=== PATIENT | male | born 1940 | race Caucasian/White ===

== ENCOUNTER 2017-02-01 10:12 | Emergency (ER) | payer MEDICARE ==
[~2017-02-01] VITALS: Ht 182.9 cm; Wt 94.0 kg
[~2017-02-01 10:12] MED LIST: ASPI81TA82 PO; COUM5TAB PO; GLIP1TAB18 PO; HYDR-3533 PO; LANO0.2510 PO; LISI2.5T3 PO; NITR0.4S SL; ROSU40 PO; TOPR100T15 PO
[2017-02-01 10:15] VITALS: BP 130/72; PULSE 88; RESP 16; TEMP 98.1; O2SAT 97
--- NOTE | 2017-02-01 10:48 | PD ---
HPI . Fall Chief Complaint: Injury Time Seen by Provider: 10:15 Travel History International Travel<30 days: No Contact w/Intl Traveler<30days: No Traveled to known affect area: No History of Present Illness HPI 77-year-old male patient presents the emergency department via EMS after reporting a fall yesterday morning. Patient states he got out of the shower and slipped. Patient reports pain in his left hip and medial aspect of his femur. Patient has been ambulatory since this fall but states it hurts to walk. Patient did not lose consciousness but he reports that he did hit his head and has been feeling dizzy subsequent. Patient has a history of brain aneurysm and has coils in place. Patient is on Coumadin. Patient reports that he had blood work done 2 days ago and was within therapeutic limits although he does not remember his INR. Patient denies any neck or back pain. Patient has full range of motion of neck. PFSH Past Medical History Hx Anticoagulant Therapy: Yes AAA: Yes Arthritis: Yes (BILATERAL KNEES ) Asthma: No Atrial Fibrillation: Yes Blood Disorders: No Heart Rhythm Problems: Yes Cancer: No Cardiac Catheterization: Yes (DENIES STENTING) Cardiovascular Problems: Yes High Cholesterol: No Chemotherapy: No Chest Pain: No Congestive Heart Failure: No COPD: Yes Cerebrovascular Accident: No Coronary Artery Disease: Yes Diabetes: Yes Diminished Hearing: No Endocrine: No Gastrointestinal Disorders: No Glaucoma: No Genitourinary: No Headaches: No Hepatitis: No Hiatal Hernia: No Hypertension: Yes Immune Disorder: No Musculoskeletal: Yes Neurologic: Yes Psychiatric: No Reproductive: No Respiratory: Yes (asbestos) Integumentary: No Immunizations Current: Yes Migraines: No Myocardial Infarction: Yes Radiation Therapy: No Seizures: No Sleep Apnea: No Thyroid Disease: No Past Surgical History Abdominal Aneurysm Repair: Yes (2007) Abdominal Surgery: No AICD: No Appendectomy: Yes Arteriovenous Shunt: No Cardiac Surgery: Yes (CABG ) Cholecystectomy: Yes Coronary Artery Bypass Graft: Yes (2005) Ear Surgery: No Endocrine Surgery: No Eye Surgery: No Genitourinary Surgery: No Gynecologic Surgery: No Insulin Pump: No Joint Replacement: No Neurologic Surgery: Yes (cerebral anerysum) Oral Surgery: No Pacemaker: No Thoracic Surgery: No Other Surgery: Yes (cabg x3, brain sx, AAA repair) Social History Alcohol Use: No Tobacco Use: No (quit) Substance Use: No Allergies-Medications (Allergen,Severity, Reaction): Uncoded Allergies: MRI PRECAUTION/ANEURSYM CLIPS (Allergy, Severe, ANEURYSM CLIPS IN BRAIN., 01/31/15) MRI PRECAUTION/ ANEURYSM CLIPS IN BRAIN 01/02/15 VV Reported Meds & Prescriptions Reported Meds & Active Scripts Active Reported Fenofibrate 48 Mg Tab 48 Mg PO DAILY Digoxin 0.25 Mg Tab 0.25 Mg PO DAILY Warfarin 7.5 Mg Tab 7.5 Mg PO DAILY Rosuvastatin (Rosuvastatin Calcium) 40 Mg Tab 40 Mg PO DAILY Aldactone (Spironolactone) 25 Mg Tab 25 Mg PO DAILY Lisinopril 2.5 Mg Tab 2.5 Mg PO DAILY Metoprolol Tartrate 100 Mg Tab 100 Mg PO DAILY Glipizide 5 Mg Tab 5 Mg PO DAILY Take 30 minutes before a meal Review of Systems Except as stated in HPI: all other systems reviewed are Neg Physical Exam Narrative GENERAL: Well-nourished, well-developed 77-year-old male patient in no acute distress. Nontoxic appearing. SKIN: Focused skin assessment warm/dry. No areas of erythema, ecchymosis or cyanosis. HEAD: Normocephalic. Atraumatic. Old scar noted to the left aspect of scalp. NEUROLOGICAL: Awake and alert. Cranial nerves II through XII intact. Motor and sensory grossly within normal limits. Five out of 5 muscle strength in all muscle groups. Normal speech. EYES: Demonstrate PERRLA bilaterally. No scleral icterus. No injection or drainage. NECK: Supple, trachea midline. No JVD or lymphadenopathy. CARDIOVASCULAR: Regular rate and rhythm without murmurs, gallops, or rubs. RESPIRATORY: Breath sounds equal bilaterally. No accessory muscle use. GASTROINTESTINAL: Abdomen soft, non-tender, nondistended. MUSCULOSKELETAL: Left hip pain with palpation. Left medial thigh pain with palpation. No obvious deformity, ecchymosis, erythema, cyanosis, or edema. BACK: No midline tenderness, no obvious deformity, ecchymosis, erythema or cyanosis. No CVA tenderness. Data Data Last Documented VS Vital Signs Date Time Temp Pulse Resp B/P (MAP) Pulse Ox O2 Delivery O2 Flow Rate FiO2 02/01/17 12:57 86 18 133/71 (91) 97 02/01/17 11:22 Room Air 02/01/17 10:15 98.1 Orders Orders Femur (Ap & Lat/2vws) (02/01/17 10:35) Hip, Uni(Ap&Lat) W Ap Pelvis (02/01/17 10:35) Ice/Cold Pack (02/01/17 10:35) Ct Brain W/O Iv Contrast(Rout) (02/01/17 10:35) Ed Discharge Order (02/01/17 12:44) MDM Medical Decision Making Medical Screen Exam Complete: Yes Emergency Medical Condition: Yes Differential Diagnosis Differential diagnoses include but not limited to left hip fracture, left femur fracture, ICH, concussive syndrome, fall Narrative Course 77-year-old male patient presents emergency department for evaluation of left hip and left medial femur pain after falling yesterday morning when he slipped getting out of the shower. Patient has an extensive medical history. He has coils in his brain from a brain aneurysm. He is on Coumadin for atrial fibrillation. He is unsure of his current INR but he had checked 2 days ago and reports that it was in therapeutic limits. Patient states he hit his head when he fell but he did not lose consciousness. Patient has no focal neurological deficits. He does report that he gets dizzy when standing for long period of time after the fall though. X-ray of the left hip, left femur and CAT scan of brain ordered and pending. X-ray of the left hip, left femur and CAT scan of brain showed no acute abnormalities. Patient was relieved when given the results and thanked us for care. Patient will be discharged home with instructions to follow-up with his primary care and to take Tylenol as needed for pain. Last Impressions Hip and Pelvis X-Ray 02/01/17 1035 Signed Impressions: Service Date/Time: Wednesday, February 01, 2017 11:30 - CONCLUSION: Negative trauma study. Jaguar Lowe MD Head CT 02/01/17 1035 Signed Impressions: Service Date/Time: Wednesday, February 01, 2017 10:52 - CONCLUSION: 1. Encephalomalacia involving the left temporal lobe. 2. 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 3. No acute infarct, acute hemorrhage, midline shift or extraaxial fluid collections. Trav Pedro MD Femur X-Ray 02/01/17 1035 Signed Impressions: Service Date/Time: Wednesday, February 01, 2017 11:30 - CONCLUSION: Negative trauma study. Jaguar Lowe MD Diagnosis Primary Impression: Fall Qualified Codes: W19.XXXA - Unspecified fall, initial encounter Additional Impression: Contusion Qualified Codes: S70.02XA - Contusion of left hip, initial encounter Referrals: Primary Care Physician Patient Instructions: Contusion in Adults (DC), Fall Prevention for Children ( GEN), General Instructions Additional Instructions: Please return to emergency department if your symptoms return or worsen. Follow up with your primary care provider. Take Tylenol as needed for pain. May apply ice packs for pain relief Disposition: 01 DISCHARGE HOME Condition: Stable Maggie Howell Feb 01, 2017 10:48
[2017-02-01] MEDS ORDERED: SPIR25 PO ×2 (10:53)
[2017-02-01] MEDS ORDERED: ROSU1TAB10 PO ×2 (10:53)
[2017-02-01] MEDS ORDERED: DIGO0.25 PO ×2 (10:53)
[2017-02-01] MEDS ORDERED: LISI2.5T3 PO ×2 (10:53)
[2017-02-01] MEDS ORDERED: WARF-21 PO ×2 (10:53)
[2017-02-01] MEDS ORDERED: FENO48TA PO ×2 (10:53)
[2017-02-01] MEDS ORDERED: METO100T PO (10:53)
[2017-02-01] MEDS ORDERED: GLIP5TAB8 PO ×2 (10:53)
[2017-02-01 11:22] VITALS: BP 127/68; PULSE 88; RESP 18; O2SAT 100
--- NOTE | 2017-02-01 11:23 | RADRPT ---
EXAM DATE/TIME: 02/01/2017 10:52 [facility] COMPARISON: No previous studies available for comparison. INDICATIONS : Trauma. Fell and hit head yesterday. Dizziness. RADIATION DOSE: 64.21 CTDIvol (mGy) MEDICAL HISTORY : Aneurysm, intracranial. Aneurysm, abdominal. Chronic obstructive pulmonary disease .Hypertension. My ocardial infarction. Diabetes. SURGICAL HISTORY : Intracranial aneurysm repair. Abdominal aortic aneurysm repair. Appendectomy. Cholecystectomy. CABG. ENCOUNTER: Initial ACUITY: 1 day PAIN SCALE: 2/10 LOCATION: cranial TECHNIQUE: Multiple contiguous axial images were obtained of the head. Using automated exposure control and adj ustment of the mA and/or kV according to patient size, radiation dose was kept as low as reasonably a chievable to obtain optimal diagnostic quality images. DICOM format image data is available electro nically for review and comparison. FINDINGS: There is an aneurysm clip in the expected region of the left middle cerebral artery. Encephalomalaci a is noted involving the left temporal lobe. Old infarcts are also noted involving left basal ganglia. There i s ex vacuo dilatation of the left lateral ventricle. There is no acute infarct, acute hemorrhage, midline shift or extraaxial fluid collections. Mild cerebral atrophy is noted. CONCLUSION: 1. Encephalomalacia involving the left temporal lobe. 2. 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 3. No acute infarct, acute hemorrhage, midline shift or extraaxial fluid collections. Trav Pedro MD on February 01, 2017 at 11:07 Board Certified Radiologist. This report was verified electronically.
--- NOTE | 2017-02-01 12:05 | RADRPT ---
EXAM DATE/TIME: 02/01/2017 11:30 [facility] COMPARISON: No previous studies available for comparison. INDICATIONS : Fall, left posterior hip and mid thigh pain. MEDICAL HISTORY : None. SURGICAL HISTORY : None. ENCOUNTER: Initial ACUITY: 2 days PAIN SCORE: 5/10 LOCATION: Left posterior hip FINDINGS: Examination of the left hip was performed with AP Pelvis. The primary and secondary trabecular patte rn of the femoral neck is intact. The hip joint is of normal width without significant sclerosis or bony hypertrophy. The acetabulum is grossly intact. Vascular calcifications are present. Arterial st ent grafts are noted in place in the iliac arteries. CONCLUSION: Negative trauma study. Jaguar Lowe MD on February 01, 2017 at 12:04 Board Certified Radiologist. This report was verified electronically.
--- NOTE | 2017-02-01 12:06 | RADRPT ---
EXAM DATE/TIME: 02/01/2017 11:30 [facility] COMPARISON: No previous studies available for comparison. INDICATIONS : Fall, left posterior hip and mid thigh pain. MEDICAL HISTORY : None. SURGICAL HISTORY : None. ENCOUNTER: Initial ACUITY: 2 days PAIN SCORE: 5/10 LOCATION: Left posterior hip and mid thigh FINDINGS: Two view examination of the left femur demonstrates no evidence of fracture or dislocation. Bony min eralization is normal. The soft tissue structures are intact. Degenerative changes are noted in the medial compartment of the knee. There are vascular calcifications. CONCLUSION: Negative trauma study. Jaguar Lowe MD on February 01, 2017 at 12:05 Board Certified Radiologist. This report was verified electronically.
[2017-02-01 12:57] VITALS: BP 133/71
== END 2017-02-01 12:59 | disposition home or self-care (01) ==
LOC: PHED 10:12
DX: S70.02XA Contusion of left hip, initial encounter (principal); S09.90XA Unspecified injury of head, initial encounter; E11.9 Type 2 diabetes mellitus without complications; I10 Essential (primary) hypertension; I48.91 Unspecified atrial fibrillation; I25.10 Atherosclerotic heart disease of native coronary artery without angina pectoris; W01.0XXA Fall on same level from slipping, tripping and stumbling without subsequent striking against object, initial encounter; Y93.89 Activity, other specified; Z79.01 Long term (current) use of anticoagulants; Z79.84 Long term (current) use of oral hypoglycemic drugs; Z87.891 Personal history of nicotine dependence; Z95.1 Presence of aortocoronary bypass graft
CPT/HCPCS: 70450; 73502; 73552

== ENCOUNTER 2017-02-08 10:40 | Inpatient (IN) | payer MEDICARE ==
[2017-02-08] VITALS (9 sets, daily range): BP systolic 100–144; BP diastolic 59–98; PULSE 83–114; RESP 12–16; TEMP 96.5–98.3; O2SAT 95–98
[~2017-02-08] VITALS: Ht 182.9 cm; Wt 98.4 kg
[~2017-02-08 10:40] MED LIST changes: +DIGO0.25 PO; +FENO48TA PO; +GLIP5TAB8 PO; +METO100T PO; +ROSU1TAB10 PO; +SPIR25 PO; +WARF-21 PO
--- NOTE | 2017-02-08 11:53 | PD ---
HPI Chief Complaint: Fall Time Seen by Provider: 11:48 Travel History International Travel<30 days: No Contact w/Intl Traveler<30days: No Traveled to known affect area: No History of Present Illness HPI 77-year-old male patient presents to the ER today, had been seen a week ago after a fall, had x-rays done of the femur and CAT scan of the head at that time which were all negative, is back here sent in by Dr. Johnson because he apparently has been having increased swelling of the left leg and is having difficulty walking because of pain in the left leg. He apparently is having difficulty being care for by family. He denies any new issues or injuries. He has apparently been sent by office because of evaluation for DVT. Modifying Factors: None Associated Signs & Symptoms: Fall 1 week ago, left leg swelling and pain, difficulty walking Risk Factors: On Coumadin PFSH Past Medical History Hx Anticoagulant Therapy: Yes AAA: Yes Arthritis: Yes (BILATERAL KNEES ) Asthma: No Atrial Fibrillation: Yes Blood Disorders: No Heart Rhythm Problems: Yes Cancer: No Cardiac Catheterization: Yes (DENIES STENTING) Cardiovascular Problems: Yes High Cholesterol: No Chemotherapy: No Chest Pain: No Congestive Heart Failure: No COPD: Yes Cerebrovascular Accident: No Coronary Artery Disease: Yes Diabetes: Yes Diminished Hearing: No Endocrine: No Gastrointestinal Disorders: No Glaucoma: No Genitourinary: No Headaches: No Hepatitis: No Hiatal Hernia: No Hypertension: Yes Immune Disorder: No Musculoskeletal: Yes Neurologic: Yes Psychiatric: No Reproductive: No Respiratory: Yes (asbestos) Integumentary: No Immunizations Current: Yes Migraines: No Myocardial Infarction: Yes Radiation Therapy: No Seizures: No Sleep Apnea: No Thyroid Disease: No Past Surgical History Abdominal Aneurysm Repair: Yes (2007) Abdominal Surgery: No AICD: No Appendectomy: Yes Arteriovenous Shunt: No Cardiac Surgery: Yes (CABG ) Cholecystectomy: Yes Coronary Artery Bypass Graft: Yes (2005) Ear Surgery: No Endocrine Surgery: No Eye Surgery: No Genitourinary Surgery: No Gynecologic Surgery: No Insulin Pump: No Joint Replacement: No Neurologic Surgery: Yes (cerebral anerysum) Oral Surgery: No Pacemaker: No Thoracic Surgery: No Other Surgery: Yes (cabg x3, brain sx, AAA repair) Social History Alcohol Use: No Tobacco Use: No (quit) Substance Use: No Allergies-Medications (Allergen,Severity, Reaction): Uncoded Allergies: MRI PRECAUTION/ANEURSYM CLIPS (Allergy, Severe, ANEURYSM CLIPS IN BRAIN., 02/08/17) MRI PRECAUTION/ ANEURYSM CLIPS IN BRAIN 01/02/15 VV. Reported Meds & Prescriptions Reported Meds & Active Scripts Active Reported Fenofibrate 48 Mg Tab 48 Mg PO DAILY Digoxin 0.25 Mg Tab 0.25 Mg PO DAILY Warfarin 7.5 Mg Tab 7.5 Mg PO DAILY Rosuvastatin (Rosuvastatin Calcium) 40 Mg Tab 40 Mg PO DAILY Aldactone (Spironolactone) 25 Mg Tab 25 Mg PO DAILY Lisinopril 2.5 Mg Tab 2.5 Mg PO DAILY Metoprolol Tartrate 100 Mg Tab 100 Mg PO DAILY Glipizide 5 Mg Tab 5 Mg PO DAILY Take 30 minutes before a meal Review of Systems Except as stated in HPI: all other systems reviewed are Neg Physical Exam Narrative GENERAL: Well-developed elderly white male patient currently in mild distress. Awake and oriented 3. SKIN: Focused skin assessment warm/dry. HEAD: Atraumatic. Normocephalic. EYES: Pupils equal and round. No scleral icterus. No injection or drainage. ENT: No nasal bleeding or discharge. Mucous membranes pink and moist. NECK: Trachea midline. No JVD. CARDIOVASCULAR: Regular rate and rhythm. No murmur appreciated. RESPIRATORY: No accessory muscle use. Clear to auscultation. Breath sounds equal bilaterally. GASTROINTESTINAL: Abdomen soft, non-tender, nondistended. Hepatic and splenic margins not palpable. MUSCULOSKELETAL: No obvious deformities. No clubbing. No cyanosis. There is significant pitting edema of the left leg going from the thigh all way down the leg, with notable ecchymosis posteriorly from the left buttocks all the way down the posterior part of the thigh to the calf area. Tender to palpation of the mid thigh area especially. Neurovascularly intact. NEUROLOGICAL: Awake and alert. No obvious cranial nerve deficits. Motor grossly within normal limits. Normal speech. PSYCHIATRIC: Appropriate mood and affect; insight and judgment normal. Data Data Last Documented VS Vital Signs Date Time Temp Pulse Resp B/P (MAP) Pulse Ox O2 Delivery O2 Flow Rate FiO2 02/08/17 14:43 83 16 110/64 (79) 98 Room Air 02/08/17 10:49 97.9 Orders Orders Complete Blood Count With Diff (02/08/17 11:48) Comprehensive Metabolic Panel (02/08/17 11:48) Prothrombin Time / Inr (Pt) (02/08/17 11:48) Act Partial Throm Time (Ptt) (02/08/17 11:48) Us Leg Venous Doppler (02/08/17 11:48) Ct Femur W/O Iv Contrast (02/08/17 ) Insulin Human Regular Inj (Novolin R Inj (02/08/17 14:15) Admit To Inpatient (02/08/17 ) Vital Signs (Adult) BRODIE.Q4H (02/08/17 14:41) Activity Bed Rest (02/08/17 14:41) Tractor Trailer Mechanic / Telemetry BRODIE.Q8H (02/08/17 14:41) Inpatient Certification (02/08/17 ) Admit Order (Ed Use Only) (02/08/17 14:40) Labs Laboratory Tests Test 02/08/17 12:15 White Blood Count 15.7 TH/MM3 Red Blood Count 3.52 MIL/MM3 Hemoglobin 10.1 GM/DL Hematocrit 30.7 % Mean Corpuscular Volume 87.1 FL Mean Corpuscular Hemoglobin 28.6 PG Mean Corpuscular Hemoglobin Concent 32.9 % Red Cell Distribution Width 16.2 % Platelet Count 308 TH/MM3 Mean Platelet Volume 7.4 FL Neutrophils (%) (Auto) 84.7 % Lymphocytes (%) (Auto) 5.2 % Monocytes (%) (Auto) 8.1 % Eosinophils (%) (Auto) 0.4 % Basophils (%) (Auto) 1.6 % Neutrophils # (Auto) 13.2 TH/MM3 Lymphocytes # (Auto) 0.8 TH/MM3 Monocytes # (Auto) 1.3 TH/MM3 Eosinophils # (Auto) 0.1 TH/MM3 Basophils # (Auto) 0.3 TH/MM3 CBC Comment DIFF FINAL Differential Comment Prothrombin Time 29.5 SEC Prothromb Time International Ratio 2.6 RATIO Activated Partial Thromboplast Time 37.8 SEC Blood Urea Nitrogen 21 MG/DL Creatinine 1.50 MG/DL Random Glucose 348 MG/DL Total Protein 7.0 GM/DL Albumin 3.2 GM/DL Calcium Level 8.2 MG/DL Alkaline Phosphatase 58 U/L Aspartate Amino Transf (AST/SGOT) 15 U/L Alanine Aminotransferase (ALT/SGPT) 20 U/L Total Bilirubin 2.2 MG/DL Sodium Level 128 MEQ/L Potassium Level 5.0 MEQ/L Chloride Level 95 MEQ/L Carbon Dioxide Level 25.6 MEQ/L Anion Gap 7 MEQ/L Estimat Glomerular Filtration Rate 45 ML/MIN [facility] Medical Decision Making Medical Screen Exam Complete: Yes Emergency Medical Condition: Yes Medical Record Reviewed: Yes Interpretation(s) Laboratory Tests Test 02/08/17 12:15 White Blood Count 15.7 TH/MM3 (4.0-11.0) Red Blood Count 3.52 MIL/MM3 (4.50-5.90) Hemoglobin 10.1 GM/DL (13.0-17.0) Hematocrit 30.7 % (39.0-51.0) Neutrophils (%) (Auto) 84.7 % (16.0-70.0) Lymphocytes (%) (Auto) 5.2 % (9.0-44.0) Monocytes (%) (Auto) 8.1 % (0.0-8.0) Neutrophils # (Auto) 13.2 TH/MM3 (1.8-7.7) Lymphocytes # (Auto) 0.8 TH/MM3 (1.0-4.8) Monocytes # (Auto) 1.3 TH/MM3 (0-0.9) Basophils # (Auto) 0.3 TH/MM3 (0-0.2) Prothrombin Time 29.5 SEC (9.8-11.6) Activated Partial Thromboplast Time 37.8 SEC (24.3-30.1) Blood Urea Nitrogen 21 MG/DL (7-18) Creatinine 1.50 MG/DL (0.60-1.30) Random Glucose 348 MG/DL (74-106) Albumin 3.2 GM/DL (3.4-5.0) Calcium Level 8.2 MG/DL (8.5-10.1) Total Bilirubin 2.2 MG/DL (0.2-1.0) Sodium Level 128 MEQ/L (136-145) Chloride Level 95 MEQ/L (98-107) Estimat Glomerular Filtration Rate 45 ML/MIN (>89) Last 24 hours Impressions Lower Extremity Ultrasound 02/08/17 1148 Signed Impressions: Service Date/Time: Wednesday, February 08, 2017 12:21 - CONCLUSION: Normal examination. Twin Terry MD Differential Diagnosis Left leg swelling, pain, difficulty walking: Contusions versus DVT versus dependent edema versus occult fracture Narrative Course Ultrasound shows no signs of DVT. CT of the leg does show a large left thigh hematoma. No underlying fracture was identified. INR is therapeutic. At this point, lab work also shows significant hyperglycemia and hyponatremia. He has not been eating well at home and may be slightly dehydrated as well as a creatinine is mildly elevated from baseline. Case was discussed with Dr. Johnson who would send the patient and he states that he suspected the patient may need more care at home and may need PT evaluation for possible rehabilitation care. Patient's was equally old is unable to care for the patient. Case was then discussed with Dr. Kelly for admission as an observation and for evaluation for PT therapy. Diagnosis Primary Impression: Thigh hematoma Additional Impression: Ambulatory dysfunction Admitting Information Admitting Physician Requests: Admit Anju Rojas MD Feb 08, 2017 11:53
[2017-02-08 12:21] LABS: AUTOMATED NEUTROPHIL # 13.2 TH/MM3 (1.8-7.7); BASOPHIL # 0.3 TH/MM3 (0-0.2); BASOPHIL % 1.6 % (0.0-2.0); EOSINOPHIL # 0.1 TH/MM3 (0-0.4); EOSINOPHIL % 0.4 % (0.0-4.0); HEMATOCRIT 30.7 % (39.0-51.0); LYMPH % 5.2 % (9.0-44.0); LYMPHOCYTE # 0.8 TH/MM3 (1.0-4.8); MEAN CELL VOLUME 87.1 FL (80.0-100.0); MEAN CORPUSCULAR HEMOGLOBIN 28.6 PG (27.0-34.0); MEAN CORPUSCULAR HGB CONC 32.9 % (32.0-36.0); MONO % 8.1 % (0.0-8.0); NEUT % 84.7 % (16.0-70.0); PLATELET COUNT 308 TH/MM3 (150-450); RED BLOOD COUNT 3.52 MIL/MM3 (4.50-5.90); RED CELL DISTRIBUTION WIDTH 16.2 % (11.6-17.2); WHITE BLOOD COUNT 15.7 TH/MM3 (4.0-11.0)
[2017-02-08 12:28] LABS: CHLORIDE 95 MEQ/L (98-107); SODIUM (NA) 128 MEQ/L (136-145)
[2017-02-08 12:32] LABS: ANION GAP 7 MEQ/L (5-15); BICARBONATE 25.6 MEQ/L (21.0-32.0); BLOOD UREA NITROGEN 21 MG/DL (7-18)
[2017-02-08 12:34] LABS: APTT (PATIENT) 37.8 SEC (24.3-30.1); INTERNATIONAL NORMALIZED RATIO 2.6 RATIO; PROTHROMBIN TIME - PATIENT 29.5 SEC (9.8-11.6)
[2017-02-08 12:35] LABS: ALT (GPT) 20 U/L (12-78); AST (GOT) 15 U/L (15-37); GLOMERULAR FILTRATION RATE 45 ML/MIN (>89)
[2017-02-08 12:36] LABS: TOTAL BILIRUBIN ADULT 2.2 MG/DL (0.2-1.0)
[2017-02-08 12:38] LABS: ALKALINE PHOSPHATASE 58 U/L (45-117); HEMO FLAGS DIFF FINAL
--- NOTE | 2017-02-08 12:46 | RADRPT ---
EXAM DATE/TIME: 02/08/2017 12:18 [facility] COMPARISON: HIP LEFT (AP&LAT 2/3VWS) W AP PELVIS, February 01, 2017, 11:30. FEMUR LEFT (AP & LAT/2VWS), February 01, 2017, 11:30. INDICATIONS : Left leg pain, bruising and swelling, fell 1 week ago. RADIATION DOSE: 14.33 CTDIvol (mGy) MEDICAL HISTORY : Aneurysm, abdominal. Aneurysm, intracranial. Chronic obstructive pulmonary disease.Hypertension. My ocardial infarction. Diabetes. SURGICAL HISTORY : Abdominal aortic aneurysm repair. CABG Appendectomy.Cholecystectomy. ENCOUNTER: Initial ACUITY: 1 week PAIN SCALE: 9/10 LOCATION: Left leg TECHNIQUE: Volumetric scanning of the femur was performed. Using automated exposure control and adjustment of t he mA and/or kV according to patient size, radiation dose was kept as low as reasonably achievable to obtain optimal diagnostic quality images. DICOM format image data is available electronically for review and comparison. FINDINGS: Heterogeneous and lobulated mass and/or collection seen posterolaterally of the upper left thigh ther e is an intramuscular component that mostly involves the inferolateral portions of gluteus jeimy an d proximal to mid portions of vastus lateralis.. There are also inter-muscular and interfascial compo nents, deep to gluteus jeimy, in the superficial greater trochanteric bursa deep to tensor fascial mina and also in the fascial plane between tensor fascia mina and vastus lateralis. The abnormality m easures approximate 6.9 x 12.2 cm in greatest transaxial dimension and estimated 11.5 cm proximal to distal. There is lateral predominant subcutaneous edema of the left thigh but nothing organized or dr ainable here. The left hip, left knee and femur are intact. No perceptible muscle tear. There is moderate osteoarthritis of the left knee, medial compartment predominant. CONCLUSION: Relatively large intramuscular and intermuscular hematoma of the upper left thigh as above. No fractu re. Twin Leslie MD on February 08, 2017 at 12:37 Board Certified Radiologist. This report was verified electronically.
--- NOTE | 2017-02-08 13:55 | RADRPT ---
EXAM DATE/TIME: 02/08/2017 12:21 [facility] COMPARISON: No previous studies available for comparison. INDICATIONS : Left leg pain. MEDICAL HISTORY : Myocardial infarction. Aneurysm, abdominal. Hypertension. CAD. A-fib. COPD. Arthritis. Diabetes. A nticoagulant therapy, Coumadin. SURGICAL HISTORY : Abdominal aortic aneurysm repair. CABG Pacemaker. Cardiac cath. Appendectomy. Cholecystectomy. ENCOUNTER: Initial ACUITY: 1 week PAIN SCORE: 9/10 LOCATION: Left leg. TECHNIQUE: Venous ultrasound of the leg was performed from the inguinal ligament to the proximal calf. Real-noble e, color Doppler and spectral tracing, compression and augmentation techniques were used. FINDINGS: There is normal compressibility of the deep venous system from the inguinal region to the proximal ca lf. No echogenic clot is seen in the lumen of the common femoral, femoral, popliteal, and posterior tibial veins. There is a normal response of the venous system to proximal and distal augmentation an d respiration. CONCLUSION: Normal examination. Twin Terry MD on February 08, 2017 at 13:53 Board Certified Radiologist. This report was verified electronically.
[2017-02-08] MEDS ORDERED: INSULIN HUMAN REGULAR 1,000 UNITS/10 ML VIAL IV PUSH ONE (14:15)
--- NOTE | 2017-02-08 16:53 | HHI.HP ---
[facility] Billy Johnson MD Admission Diagnosis left thigh hematoma/left thigh hematoma/poor ambulation/hyperglycemi Diagnoses: Chief Complaint: Leg pain, unable to take care of myself Travel History International Travel<30 Days: No Contact w/Intl Traveler <30 Da: No Traveled to Known Affected Are: No History of Present Illness 77-year-old white male being admitted for hyponatremia and left-sided weakness. Patient was in his usual state of health until about 10 days ago when he had a mechanical fall landing on his left leg hip and lower back. He underwent imaging and emergency room which showed no fractures. Since then he's had to use a front wheeled walker and has had persistent left leg weakness with pain. Pain in his leg is worse with weightbearing. Patient has not tried taking any new medications except for hydrocodone which he had left over from a previous prescription which does control his pain. He went to his primary care doctor today who apparently referred him to the emergency room for further evaluation of his left leg swelling. In the emergency room the patient's Dopplers negative for DVT but a CT shows a substantial hematoma. Due to his symptoms, the patient says he is unable to perform basic activities of daily living including showering, getting dressed, etc. His and his son are both in the room and they say that they are unable to care for him as well due to their obligations and also due to the physical exertion and requires to help him. Review of Systems Except as stated in HPI: all other systems reviewed are Neg Past Family Social History Past Medical History AAA Arthritis Atrial fibrillation COPD, asbestosis Coronary artery disease Diabetes hypertension Past Surgical History Appendectomy, CABG, AAA repair, cerebral aneurysm Allergies: Uncoded Allergies: MRI PRECAUTION/ANEURSYM CLIPS (Allergy, Severe, ANEURYSM CLIPS IN BRAIN., 02/08/17) MRI PRECAUTION/ ANEURYSM CLIPS IN BRAIN 01/02/15 VV. Family History HTN Social History Lives with , stop smoking decades ago Physical Exam Vital Signs Vital Signs Date Time Temp Pulse Resp B/P (MAP) Pulse Ox O2 Delivery O2 Flow Rate FiO2 02/08/17 15:56 82 16 100/88 (92) 97 02/08/17 15:00 88 16 117/70 (86) 97 Room Air 02/08/17 14:43 83 16 110/64 (79) 98 Room Air 02/08/17 14:00 84 16 Room Air 02/08/17 12:10 86 16 105/63 (77) 02/08/17 11:52 111 16 97 Room Air 02/08/17 10:49 97.9 114 16 144/98 (113) 97 Physical Exam VS: Afebrile GENERAL: Well-nourished elderly white male Head: Has a divot over the left restorationist which pt states its chronic SKIN: Ecchymoses noted over left lateral thigh and hip and lower back EYES: No scleral icterus. No injection or drainage. ENT: No nasal bleeding or discharge. Mucous membranes pink and moist. CARDIOVASCULAR: Regular rate and rhythm. no murmurs RESPIRATORY: No accessory muscle use. Clear to auscultation. Breath sounds equal bilaterally. GASTROINTESTINAL: Abdomen soft, non-tender, nondistended. Hepatic and splenic margins not palpable. Extremities: No clubbing, cyanosis, or edema. No obvious deformities. MUSCULOSKELETAL: Extremities without clubbing, cyanosis, or edema. No obvious deformities. Grossly intact ROM with 5/5 strength in upper extremities proximally; 3/5 LE extremity strength of proximal left extremity, 5/5 on right, intact full range of motion on passive dorsiflexion and plantar flexion of bilateral feet with no pain elicited NEUROLOGICAL: Awake and alert. No obvious cranial nerve deficits. No facial droop nor slurred speech noted. PSYCHIATRIC: Appropriate mood and affect; insight and judgment normal. Laboratory Laboratory Tests Test 02/08/17 12:15 White Blood Count 15.7 Red Blood Count 3.52 Hemoglobin 10.1 Hematocrit 30.7 Mean Corpuscular Volume 87.1 Mean Corpuscular Hemoglobin 28.6 Mean Corpuscular Hemoglobin Concent 32.9 Red Cell Distribution Width 16.2 Platelet Count 308 Mean Platelet Volume 7.4 Neutrophils (%) (Auto) 84.7 Lymphocytes (%) (Auto) 5.2 Monocytes (%) (Auto) 8.1 Eosinophils (%) (Auto) 0.4 Basophils (%) (Auto) 1.6 Neutrophils # (Auto) 13.2 Lymphocytes # (Auto) 0.8 Monocytes # (Auto) 1.3 Eosinophils # (Auto) 0.1 Basophils # (Auto) 0.3 CBC Comment DIFF FINAL Differential Comment Prothrombin Time 29.5 Prothromb Time International Ratio 2.6 Activated Partial Thromboplast Time 37.8 Blood Urea Nitrogen 21 Creatinine 1.50 Random Glucose 348 Total Protein 7.0 Albumin 3.2 Calcium Level 8.2 Alkaline Phosphatase 58 Aspartate Amino Transf (AST/SGOT) 15 Alanine Aminotransferase (ALT/SGPT) 20 Total Bilirubin 2.2 Sodium Level 128 Potassium Level 5.0 Chloride Level 95 Carbon Dioxide Level 25.6 Anion Gap 7 Estimat Glomerular Filtration Rate 45 Result Diagram: 02/08/17 1215 02/08/17 1215 Caprini VTE Risk Assessment Caprini VTE Risk Assessment: Mod/High Risk (score >= 2) Caprini Risk Assessment Model Point Value = 1 Point Value = 2 Point Value = 3 Point Value = 5 Age 41-60 Minor surgery BMI > 25 kg/m2 Swollen legs Varicose veins or History of unexplained or recurrent spontaneous Oral contraceptives or hormone replacement Sepsis (< 1 month) Serious lung disease, including pneumonia (< 1 month) Abnormal pulmonary function Acute myocardial infarction Congestive heart failure (< 1 month) History of inflammatory bowel disease Medical patient at bed rest Age 61-74 Arthroscopic surgery Major open surgery (> 45 min) Laparoscopic surgery (> 45 min) Malignancy Confined to bed (> 72 hours) Immobilizing plaster cast Central venous access Age >= 75 History of VTE Family history of VTE Factor V Leiden Prothrombin 23259C Lupus anticoagulant Anticardiolipin antibodies Elevated serum homocysteine Heparin-induced thrombocytopenia Other congenital or acquired thrombophilia Stroke (< 1 month) Elective arthroplasty Hip, pelvis, or leg fracture Acute spinal cord injury (< 1 month) Prophylaxis Regimen Total Risk Factor Score Risk Level Prophylaxis Regimen 0-1 Low Early ambulation 2 Moderate Order ONE of the following: *Sequential Compression Device (SCD) *Heparin 5000 units SQ BID 3-4 Higher Order ONE of the following medications: *Heparin 5000 units SQ TID *Enoxaparin/Lovenox 40 mg SQ daily (WT < 150 kg, CrCl > 30 mL/min) *Enoxaparin/Lovenox 30 mg SQ daily (WT < 150 kg, CrCl > 10-29 mL/min) *Enoxaparin/Lovenox 30 mg SQ BID (WT < 150 kg, CrCl > 30 mL/min) AND/OR *Sequential Compression Device (SCD) 5 or more Highest Order ONE of the following medications: *Heparin 5000 units SQ TID (Preferred with Epidurals) *Enoxaparin/Lovenox 40 mg SQ daily (WT < 150 kg, CrCl > 30 mL/min) *Enoxaparin/Lovenox 30 mg SQ daily (WT < 150 kg, CrCl > 10-29 mL/min) *Enoxaparin/Lovenox 30 mg SQ BID (WT < 150 kg, CrCl > 30 mL/min) AND *Sequential Compression Device (SCD) Assessment and Plan Assessment and Plan Hyponatremia - Likely acute, possibly interfered with serum glucose - We'll check TSH, urine sodium, urine osmolality - We'll follow through with fluid restriction after normal saline bolus Left leg weakness - Hematoma noted on CT - PT and OT consulted - fall precautions - Given subacute nature, unlikely stroke, CT head is negative for any acute abnormalities - TSH, CK DM - Low-dose sliding scale with Accu-Cheks - Continue home glipizide - Normal saline bolus CAD - continue home crestor HTN - continue home Afib - continue home warfarin, warfarin consult dvt proph. warfarin consult Physician Certification 2 Midnight Certification Type: Admission for Inpatient Services Order for Inpatient Services The services are ordered in accordance with Medicare regulations or non- Medicare payer requirements, as applicable. In the case of services not specified as inpatient-only, they are appropriately provided as inpatient services in accordance with the 2-midnight benchmark. Estimated LOS (days): 2 2 days is the estimated time the patient will need to remain in the hospital, assuming treatment plan goals are met and no additional complications. Post-Hospital Plan: [facility] Ayad Gonzalez MD Feb 08, 2017 16:53
[2017-02-08] MEDS ORDERED: GLUCAGON 1 MG/ML VIAL OTHER PRN (17:00)
[2017-02-08] MEDS ORDERED: DEXTROSE 50% IN WATER 50 ML VIAL(D50) IV PUSH PRN (17:00)
[2017-02-08] MEDS ORDERED: SODIUM CHLOR 0.9% 1000 ML INJ 1,000 ML IV ONE (17:15)
[2017-02-08] MEDS: INSULIN NovoLIN REGULAR SUPPLEMENTAL SCALE SQ SCH ×2 (18:34→22:15)
[2017-02-08] MEDS ORDERED: ATORVASTATIN 80 MG TAB PO SCH (21:00)
[2017-02-09] VITALS (8 sets, daily range): BP systolic 101–123; BP diastolic 54–66; PULSE 72–94; RESP 14–16; TEMP 97.5–99.7; O2SAT 97–99
[2017-02-09 06:35] LABS: AUTOMATED NEUTROPHIL # 8.9 TH/MM3 (1.8-7.7); BASOPHIL % 0.4 % (0.0-2.0); EOSINOPHIL # 0.2 TH/MM3 (0-0.4); EOSINOPHIL % 1.7 % (0.0-4.0); HEMATOCRIT 28.8 % (39.0-51.0); HEMO FLAGS DIFF FINAL; LYMPH % 12.1 % (9.0-44.0); LYMPHOCYTE # 1.4 TH/MM3 (1.0-4.8); MEAN CELL VOLUME 87.4 FL (80.0-100.0); MEAN CORPUSCULAR HGB CONC 33.1 % (32.0-36.0); MONO % 11.4 % (0.0-8.0); NEUT % 74.4 % (16.0-70.0); PLATELET COUNT 289 TH/MM3 (150-450); RED CELL DISTRIBUTION WIDTH 16.4 % (11.6-17.2); WHITE BLOOD COUNT 11.8 TH/MM3 (4.0-11.0)
[2017-02-09] MEDS: INSULIN NovoLIN REGULAR SUPPLEMENTAL SCALE SQ SCH ×4 (08:55→21:36)
[2017-02-09] MEDS: glipiZIDE 5 MG TAB PO SCH (08:55)
[2017-02-09] MEDS: FENOFIBRATE 48 MG TAB PO SCH (08:55)
[2017-02-09] MEDS ORDERED: METOPROLOL TARTRATE 100 MG TAB PO SCH (09:00)
[2017-02-09] MEDS ORDERED: INFLUENZA VIRUS VACCINE (QUADRIVALENT) 0.5 ML SYR IM ONE (10:00)
[2017-02-09] MEDS ORDERED: PNEUMOCOCCAL POLYVALENT INJ 25 MCG/0.5 ML SYR IM ONE (10:00)
[2017-02-09 11:43] LABS: BICARBONATE 26.2 MEQ/L (21.0-32.0); POTASSIUM 4.1 MEQ/L (3.5-5.1)
--- NOTE | 2017-02-09 11:57 | HHI.PR ---
Subjective Remarks Nursing denies any acute deterioration since last night. Patient himself reports having some nausea and lightheadedness associated with the PT sessions; no vomiting. Denies any chest pain or chest tightness during the sessions. Says that he has considerable pain upon weightbearing of his left lower leg. PT notes HR up to 120s with session that drastically normalizes to less than 100 within minutes of sitting. Objective Vital Signs Date Time Temp Pulse Resp B/P (MAP) Pulse Ox O2 Delivery O2 Flow Rate FiO2 02/09/17 08:00 97.5 94 16 117/66 (83) 97 02/09/17 04:00 98.5 85 16 120/58 (78) 98 02/09/17 00:00 98.4 88 16 123/57 (79) 97 02/08/17 20:03 106 02/08/17 20:00 98.3 90 16 131/59 (83) 95 02/08/17 18:00 96.5 84 12 110/64 (79) 95 02/08/17 16:54 96 02/08/17 15:56 82 16 100/88 (92) 97 02/08/17 15:00 88 16 117/70 (86) 97 Room Air 02/08/17 14:43 83 16 110/64 (79) 98 Room Air 02/08/17 14:00 84 16 Room Air 02/08/17 12:10 86 16 105/63 (77) I/O 02/08/17 02/08/17 02/08/17 02/09/17 02/09/17 02/09/17 07:00 15:00 23:00 07:00 15:00 23:00 Intake Total 240 ml Output Total 500 ml Balance -500 ml 240 ml Intake Oral 240 ml Output Urine Total 500 ml # Voids 0 # Bowel Movements 0 1 Result Diagram: 02/09/17 0535 02/09/17 0535 Objective Remarks Sitting in bed, awake, alert No acute distress Has 3 out of 5 strength on left proximal leg, still has unchanged tenderness over thigh A/P Assessment and Plan Hyponatremia - improved - TSH and urine sodium and osmolality within normal limits Left leg weakness - Hematoma noted on CT - PT and OT consulted - fall precautions - TSH and CK within normal limits Leg pain - Patient counseled to ask for pain medication right before PT session - We'll start heating application and [place] prn Exertional nausea - new problem - EKG is showing no signs of acute ST segment changes reflective of infarction or ischemia, discussed case with patient's travel rn Dr. Gallardo who does not recommend further cardiac workup but rather better pulse control by increasing Lopressor - Starting Zofran when necessary - Could be related to pain getting worse - Orthostatics ordered JONNY - improved w/ IVFs DM - Still poorly controlled per accuchecks - Continue home glipizide - Will upgrade from low-dose to medium dose sliding scale and consider starting metformin extended release if available at nighttime CAD - continue home crestor HTN - continue home Afib - continue home warfarin, warfarin consult dvt proph. warfarin consult Ayad Gonzalez MD Feb 09, 2017 11:57
[2017-02-09] MEDS ORDERED: PILL SPLITTER OTHER PRN (12:45)
[2017-02-09] MEDS: SPIRONOLACTONE 25 MG TAB PO SCH (12:54)
[2017-02-09] MEDS: DIGOXIN 0.25 MG TAB PO SCH (12:55)
[2017-02-09] MEDS: LISINOPRIL 5 MG TAB PO SCH (12:55)
[2017-02-09] MEDS: WARFARIN SOD 7.5 MG TAB PO SCH (17:26)
[2017-02-09] MEDS: ATORVASTATIN 40 MG TAB PO SCH (21:34)
[2017-02-09] MEDS: ACETAMINOPHEN/HYDROcodone 325 MG/7.5 MG TAB PO PRN (21:35)
[2017-02-09] MEDS: METOPROLOL SUCCINATE 50 MG EXTENDED RELEASE TAB PO SCH (21:37)
[2017-02-10] MEDS: ACETAMINOPHEN 500 MG CPLT PO PRN ×2 (00:51→21:06)
[2017-02-10] MEDS: ACETAMINOPHEN/HYDROcodone 325 MG/7.5 MG TAB PO PRN (05:23)
[2017-02-10] MEDS: FENOFIBRATE 48 MG TAB PO SCH (07:55)
[2017-02-10] MEDS: LISINOPRIL 5 MG TAB PO SCH (07:55)
[2017-02-10] MEDS: SPIRONOLACTONE 25 MG TAB PO SCH (07:55)
[2017-02-10] MEDS: DIGOXIN 0.25 MG TAB PO SCH (07:55)
[2017-02-10] MEDS: glipiZIDE 5 MG TAB PO SCH (07:55)
[2017-02-10 08:00] VITALS: BP 103/55; PULSE 72; RESP 18; TEMP 98.1; O2SAT 96
[2017-02-10] MEDS ORDERED: ONDANSETRON ODT 4 MG TAB PO PRN (09:00)
[2017-02-10] MEDS ORDERED: MECLIZINE HCL 25 MG TAB PO PRN (09:00)
[2017-02-10] MEDS: INSULIN NovoLIN REGULAR SUPPLEMENTAL SCALE SQ SCH ×4 (09:03→21:00)
[2017-02-10 12:30] VITALS: BP 101/58; PULSE 88; RESP 18; TEMP 97.5; O2SAT 99
[2017-02-10] MEDS ORDERED: HYDR-3580 PO (13:18)
[2017-02-10] MEDS ORDERED: INSULIN DETEMIR 100 UNITS/ML VIAL SQ ONE (15:00)
[2017-02-10] MEDS ORDERED: LEVEMIR SQ (15:09)
--- NOTE | 2017-02-10 15:10 | HHI.DCPOC ---
Discharge Care Plan Diagnosis: (1) Uncontrolled diabetes mellitus (2) Left leg weakness (3) Traumatic hematoma of lower leg Goals to Promote Your Health * To prevent worsening of your condition and complications * To maintain your health at the optimal level Directions to Meet Your Goals Take your medications as prescribed Follow your dietary instruction Follow activity as directed Keep your appointments as scheduled Take your immunizations and boosters as scheduled If your symptoms worsen call your PCP, if no PCP go to Urgent Care Center or Emergency Room Smoking is Dangerous to Your Health. Avoid second hand smoke Call the 24-hour hour crisis hotline for domestic abuse at Ayad Gonzalez MD Feb 10, 2017 15:10
[2017-02-10] MEDS: WARFARIN SOD 7.5 MG TAB PO SCH (15:22)
[2017-02-10] MEDS: metFORMIN HCL 500 MG TAB PO SCH ×2 (15:22→21:00)
[2017-02-10 16:00] VITALS: BP 106/54; PULSE 88; RESP 18; TEMP 99.1; O2SAT 98
--- NOTE | 2017-02-10 16:21 | HHI.PR ---
Subjective Remarks Nursing denies any deterioration since last night. Patient says he feels like therapy is helping him. He has not had his current PT session just yet, hasn't had any nausea yet. Objective Vital Signs Date Time Temp Pulse Resp B/P (MAP) Pulse Ox O2 Delivery O2 Flow Rate FiO2 02/10/17 12:30 97.5 88 18 101/58 (72) 99 02/10/17 08:00 98.1 72 18 103/55 (71) 96 02/09/17 21:00 89 02/09/17 16:34 72 02/09/17 16:33 72 I/O 02/09/17 02/09/17 02/09/17 02/10/17 02/10/17 02/10/17 07:00 15:00 23:00 07:00 15:00 23:00 Intake Total 240 ml 222 ml 650 ml 480 ml Output Total 500 ml 572 ml 300 ml 500 ml Balance -500 ml 240 ml -350 ml 350 ml -20 ml Intake Oral 240 ml 222 ml 650 ml 480 ml Output Urine Total 500 ml 572 ml 300 ml 500 ml # Bowel Movements 1 0 Result Diagram: 02/09/17 0535 02/09/17 0535 Objective Remarks Sitting in bed, awake, alert No acute distress Has 4 out of 5 strength on left proximal leg, still has unchanged tenderness over thigh A/P Assessment and Plan Hyponatremia - improved - TSH and urine sodium and osmolality within normal limits Left leg weakness - Hematoma noted on CT - PT and OT consulted - fall precautions -improving Leg pain - Patient counseled to ask for pain medication right before PT session - We'll start heating application and [place] prn Exertional nausea - new problem - No recurrence yet JONNY - improved w/ IVFs DM - Still poorly controlled per accuchecks - starting levemir and metformin, holding glipizide CAD - continue home crestor HTN - continue home Afib - continue home warfarin, warfarin consult dvt proph. warfarin consult Awaiting to hear back from rehabilitation facility and insurance for approval. Ayad Gonzalez MD Feb 10, 2017 16:21
--- NOTE | 2017-02-10 18:25 | EKG ---
Date Performed: 02/09/2017 Time Performed: 12:43:04 PTAGE: 77 years EKG: ATRIAL FIBRILLATION WITH ABERRANT CONDUCTION OR VENTRICULAR PREMATURE COMPLEXES RIGHT BUNDL E BRANCH BLOCK LEFT ANTERIOR FASCICULAR BLOCK PROBABLE SEPTAL MYOCARDIAL INFARCTION ABNORMAL ECG PREVIOUS TRACING : 01/05/2015 13.27 DOCTOR: Timur Smith Interpretating Date/Time 02/10/2017 18:17:49
[2017-02-10 20:00] VITALS: BP 116/58; PULSE 86; PULSE 92; RESP 20; TEMP 100.1; O2SAT 95
[2017-02-10] MEDS: ATORVASTATIN 40 MG TAB PO SCH (20:59)
[2017-02-10] MEDS: INSULIN DETEMIR 100 UNITS/ML VIAL SQ SCH (21:00)
[2017-02-10] MEDS: METOPROLOL SUCCINATE 50 MG EXTENDED RELEASE TAB PO SCH (21:00)
[2017-02-11] VITALS (8 sets, daily range): BP systolic 98–121; BP diastolic 54–57; PULSE 74–90; RESP 16–20; TEMP 97.4–99.8; O2SAT 95–98
[2017-02-11 07:31] LABS: INTERNATIONAL NORMALIZED RATIO 2.3 RATIO; PROTHROMBIN TIME - PATIENT 26.3 SEC (9.8-11.6)
[2017-02-11] MEDS: INSULIN NovoLIN REGULAR SUPPLEMENTAL SCALE SQ SCH ×4 (08:00→21:31)
[2017-02-11] MEDS: metFORMIN HCL 500 MG TAB PO SCH ×2 (08:45→21:29)
[2017-02-11] MEDS: DIGOXIN 0.25 MG TAB PO SCH (08:45)
[2017-02-11] MEDS: LISINOPRIL 5 MG TAB PO SCH (08:46)
[2017-02-11] MEDS: SPIRONOLACTONE 25 MG TAB PO SCH (08:49)
[2017-02-11] MEDS: FENOFIBRATE 48 MG TAB PO SCH (08:49)
[2017-02-11] MEDS: INSULIN DETEMIR 100 UNITS/ML VIAL SQ SCH ×2 (08:50→21:37)
[2017-02-11] MEDS: WARFARIN SOD 7.5 MG TAB PO SCH (14:57)
[2017-02-11] MEDS: ACETAMINOPHEN/HYDROcodone 325 MG/7.5 MG TAB PO PRN (15:08)
[2017-02-11] MEDS ORDERED: WARFARIN SOD 2.5 MG TAB PO ONE (16:00)
--- NOTE | 2017-02-11 17:58 | HHI.PR ---
Subjective Remarks Nursing denies any deterioration since last night. Patient says he had some mild nausea this morning. Denies any chest pain. Looking forward to being discharged to rehabilitation. Objective Vital Signs Date Time Temp Pulse Resp B/P (MAP) Pulse Ox O2 Delivery O2 Flow Rate FiO2 02/11/17 16:08 2 02/11/17 16:00 97.9 83 20 98/55 (69) 96 02/11/17 12:00 97.7 86 18 121/56 (77) 98 02/11/17 09:44 86 02/11/17 08:00 98.0 81 20 99/54 (69) 95 02/11/17 04:00 97.4 74 20 106/55 (72) 97 02/11/17 00:00 99.8 84 20 116/54 (74) 95 02/10/17 20:00 100.1 92 20 116/58 (77) 95 02/10/17 20:00 86 I/O 02/10/17 02/10/17 02/10/17 02/11/17 02/11/17 02/11/17 07:00 15:00 23:00 07:00 15:00 23:00 Intake Total 650 ml 480 ml 360 ml Output Total 300 ml 500 ml 1450 ml Balance 350 ml -20 ml -1090 ml Intake Oral 650 ml 480 ml 360 ml Output Urine Total 300 ml 500 ml 1450 ml # Voids 2 # Bowel Movements 0 1 Result Diagram: 02/09/17 0535 02/09/17 0535 Objective Remarks Sitting in bed, awake, alert No acute distress Has 4 out of 5 strength on left proximal leg, ecchymosis unchanged over left lateral thigh A/P Assessment and Plan Hyponatremia - Stable Left leg weakness - Hematoma noted on CT - PT and OT consulted - fall precautions - improving Leg pain - heating application and [place] prn DM - Continue with Accu-Cheks, improvement in sugars with starting metformin and Levemir while discontinuing glipizide CAD - continue home crestor HTN - continue home Afib - continue home warfarin, warfarin consult dvt proph. warfarin consult Awaiting to hear back from rehabilitation facility and insurance for approval. Ayad Gonzalez MD Feb 11, 2017 17:58
[2017-02-11] MEDS: METOPROLOL SUCCINATE 50 MG EXTENDED RELEASE TAB PO SCH (21:29)
[2017-02-11] MEDS: ATORVASTATIN 40 MG TAB PO SCH (21:30)
[2017-02-12] VITALS: BP 103/54; PULSE 72; RESP 16; TEMP 98.2; O2SAT 95
[2017-02-12 04:00] VITALS: BP 102/53; PULSE 80; RESP 16; TEMP 98.5; O2SAT 95
[2017-02-12 08:00] VITALS: BP 117/56; PULSE 80; PULSE 89; RESP 14; TEMP 97.8; O2SAT 96
[2017-02-12] MEDS: INSULIN DETEMIR 100 UNITS/ML VIAL SQ SCH ×2 (08:57→22:10)
[2017-02-12] MEDS: FENOFIBRATE 48 MG TAB PO SCH (08:57)
[2017-02-12] MEDS: LISINOPRIL 5 MG TAB PO SCH (08:57)
[2017-02-12] MEDS: SPIRONOLACTONE 25 MG TAB PO SCH (08:57)
[2017-02-12] MEDS: ACETAMINOPHEN/HYDROcodone 325 MG/7.5 MG TAB PO PRN ×2 (08:58→15:03)
[2017-02-12] MEDS: DIGOXIN 0.25 MG TAB PO SCH (08:58)
[2017-02-12] MEDS: metFORMIN HCL 500 MG TAB PO SCH ×2 (08:58→21:52)
[2017-02-12] MEDS: INSULIN NovoLIN REGULAR SUPPLEMENTAL SCALE SQ SCH ×4 (09:07→22:09)
[2017-02-12 12:00] VITALS: BP 117/56; PULSE 78; RESP 14; TEMP 98.9; O2SAT 96
--- NOTE | 2017-02-12 14:32 | HHI.PR ---
Subjective Remarks Patient seen and examined today for follow-up on weakness, left leg hematoma. Patient states that he is doing better. Still very weak. Patient indicates that he is not getting out of bed unless with physical therapy. Patient is deconditioning while in the hospital due to lack of movement, exercise. Patient is very eager to get out of bed, however he was told not to get out of bed except for with physical therapy. Objective Vital Signs Date Time Temp Pulse Resp B/P (MAP) Pulse Ox O2 Delivery O2 Flow Rate FiO2 02/12/17 09:58 18 02/12/17 08:00 80 02/12/17 08:00 97.8 89 14 117/56 (76) 96 02/12/17 04:00 98.5 80 16 102/53 (69) 95 02/12/17 00:00 98.2 72 16 103/54 (70) 95 02/11/17 21:00 85 02/11/17 20:00 98.4 90 16 113/57 (75) 96 02/11/17 16:00 97.9 83 20 98/55 (69) 96 I/O 02/11/17 02/11/17 02/11/17 02/12/17 02/12/17 02/12/17 07:00 15:00 23:00 07:00 15:00 23:00 Intake Total 360 ml 840 ml 240 ml 462 ml Output Total 1450 ml 1400 ml 175 ml Balance -1090 ml 840 ml -1160 ml 287 ml Intake Oral 360 ml 840 ml 240 ml 462 ml Output Urine Total 1450 ml 1400 ml 175 ml # Voids 2 4 1 # Bowel Movements 1 1 Result Diagram: 02/09/17 0535 02/09/17 0535 Objective Remarks GENERAL: Well-developed, well-nourished, in no acute distress. alert and orientated HEENT: Head is normocephalic without any lesions or masses noted. Facial features are symmetric. Eyes: Extraocular muscles are intact. Conjunctivae were clear. NECK: Trachea midline no deviation. CARDIAC: Regular rhythm, regular rate. S1/S2 are heard. No murmurs gallops or rubs. LUNGS: Clear to auscultation bilaterally. No wheeze, rhonchi or rales. No use of accessory muscles on inspiration or expiration. ABDOMEN: Soft, nontender. Nondistended. Bowel sounds heard in all 4 quadrants. No organomegaly or masses. Negative rebound, negative guarding EXTREMITIES: No edema, pulses are equal bilaterally. No cyanosis or clubbing NEUROLOGY: Mood and affect appear appropriate. Cranial nerves II through XII grossly intact. Moving all extremities, speech is clear A/P Assessment and Plan Left leg pain, weakness with hematoma, improving -CT scan does indicate rather large hematoma, no signs of compartmental syndrome -Continue physical therapy 7 days a week and twice a day, recommending physical therapy at rehabilitation -Occupational therapy evaluated patient and recommending occupational therapy rehabilitation -Fall precautions -Continue pain control, heating pad Hyponatremia, stable -TSH is normal -Urine osmolality increased with increased urine sodium -Continue fluid restriction Diabetes -Accu-Cheks with sliding scale insulin Hypertension, hyperlipidemia, coronary artery disease, atrial fibrillation -Home medications continued -Blood pressure stable -EKG with atrial fibrillation, rate controlled -Patient anticoagulated with Coumadin, INR 2.3 DVT prevention -Patient is on Coumadin, pharmacy consult Discharge Planning Patient has been clinically stable for discharge. [facility], physical therapy as recommended by PT/OT. Case management awaiting authorization from insurance [employer]. Jacques Zepeda Feb 12, 2017 14:32
[2017-02-12] MEDS: WARFARIN SOD 7.5 MG TAB PO SCH (15:03)
[2017-02-12 16:00] VITALS: BP 105/70; PULSE 78; RESP 14; TEMP 96.2; O2SAT 98
[2017-02-12 20:00] VITALS: BP_SYST 87; BP_SYST 97; BP_DIAS 52; BP_DIAS 54; PULSE 72; PULSE 87; RESP 16; RESP 18; TEMP 97.1; TEMP 98.1; O2SAT 100; O2SAT 95
[2017-02-12] MEDS: ATORVASTATIN 40 MG TAB PO SCH (21:52)
[2017-02-12] MEDS: METOPROLOL SUCCINATE 50 MG EXTENDED RELEASE TAB PO SCH (21:52)
[2017-02-13] VITALS: BP 107/58; PULSE 68; RESP 18; TEMP 97.6; O2SAT 98
[2017-02-13 06:06] LABS: POTASSIUM 4.5 MEQ/L (3.5-5.1)
[2017-02-13 06:10] LABS: BICARBONATE 28.1 MEQ/L (21.0-32.0); MAGNESIUM 2.4 MG/DL (1.5-2.5)
[2017-02-13 06:20] LABS: AUTOMATED NEUTROPHIL # 7.1 TH/MM3 (1.8-7.7); BASOPHIL # 0.1 TH/MM3 (0-0.2); BASOPHIL % 0.8 % (0.0-2.0); EOSINOPHIL # 0.3 TH/MM3 (0-0.4); EOSINOPHIL % 3.1 % (0.0-4.0); HEMATOCRIT 32.5 % (39.0-51.0); LYMPH % 13.5 % (9.0-44.0); LYMPHOCYTE # 1.3 TH/MM3 (1.0-4.8); MEAN CORPUSCULAR HEMOGLOBIN 28.3 PG (27.0-34.0); MEAN CORPUSCULAR HGB CONC 32.2 % (32.0-36.0); MONO % 9.8 % (0.0-8.0); NEUT % 72.8 % (16.0-70.0); PLATELET COUNT 286 TH/MM3 (150-450); RED BLOOD COUNT 3.69 MIL/MM3 (4.50-5.90); RED CELL DISTRIBUTION WIDTH 16.9 % (11.6-17.2); WHITE BLOOD COUNT 9.8 TH/MM3 (4.0-11.0)
[2017-02-13 06:35] LABS: PROTHROMBIN TIME - PATIENT 34.3 SEC (9.8-11.6)
[2017-02-13 06:56] LABS: HEMO FLAGS AUTO DIFF
[2017-02-13] MEDS: INSULIN NovoLIN REGULAR SUPPLEMENTAL SCALE SQ SCH ×2 (07:53→12:00)
[2017-02-13 08:00] VITALS: BP 149/68; PULSE 86; RESP 18; TEMP 97.7; O2SAT 97
[2017-02-13 08:06] LABS: OVALOCYTES 1+ (NORMAL); PLATELET ESTIMATE SMEAR NORMAL (NORMAL); PLATELET MORPHOLOGY NORMAL (NORMAL); SCAN/DIFF AUTO DIFF CONFIRMED
[2017-02-13] MEDS: DIGOXIN 0.25 MG TAB PO SCH (09:03)
[2017-02-13] MEDS: LISINOPRIL 5 MG TAB PO SCH (09:03)
[2017-02-13] MEDS: INSULIN DETEMIR 100 UNITS/ML VIAL SQ SCH (09:04)
[2017-02-13] MEDS: SPIRONOLACTONE 25 MG TAB PO SCH (09:04)
[2017-02-13] MEDS: metFORMIN HCL 500 MG TAB PO SCH (09:04)
[2017-02-13] MEDS: FENOFIBRATE 48 MG TAB PO SCH (09:06)
--- NOTE | 2017-02-13 09:51 | HHI.DS ---
Discharge Summary Admission Date Feb 08, 2017 at 14:43 Discharge Date: Feb 13, 2017 Admitting Diagnosis left thigh hematoma/left thigh hematoma/poor ambulation/hyperglycemi (1) Traumatic hematoma of lower leg ICD Code: S80.10XA - Contusion of unspecified lower leg, initial encounter (2) Left leg weakness ICD Code: R29.898 - Other symptoms and signs involving the musculoskeletal system (3) Thigh hematoma ICD Code: S70.10XA - Contusion of unspecified thigh, initial encounter Status: Acute Procedures None Brief History - From Admission 77-year-old white male being admitted for hyponatremia and left-sided weakness. Patient was in his usual state of health until about 10 days ago when he had a mechanical fall landing on his left leg hip and lower back. He underwent imaging and emergency room which showed no fractures. Since then he's had to use a front wheeled walker and has had persistent left leg weakness with pain. Pain in his leg is worse with weightbearing. Patient has not tried taking any new medications except for hydrocodone which he had left over from a previous prescription which does control his pain. He went to his primary care doctor today who apparently referred him to the emergency room for further evaluation of his left leg swelling. In the emergency room the patient's Dopplers negative for DVT but a CT shows a substantial hematoma. Due to his symptoms, the patient says he is unable to perform basic activities of daily living including showering, getting dressed, etc. His and his son are both in the room and they say that they are unable to care for him as well due to their obligations and also due to the physical exertion and requires to help him. CBC/BMP: 02/13/17 0525 02/13/17 0525 Significant Findings Laboratory Tests Test 02/11/17 06:34 02/13/17 05:25 Prothrombin Time 26.3 SEC (9.8-11.6) 34.3 SEC (9.8-11.6) Red Blood Count 3.69 MIL/MM3 (4.50-5.90) Hemoglobin 10.4 GM/DL (13.0-17.0) Hematocrit 32.5 % (39.0-51.0) Neutrophils (%) (Auto) 72.8 % (16.0-70.0) Monocytes (%) (Auto) 9.8 % (0.0-8.0) Monocytes # (Auto) 1.0 TH/MM3 (0-0.9) Ovalocytes 1+ (NORMAL) Blood Urea Nitrogen 19 MG/DL (7-18) Random Glucose 125 MG/DL (74-106) Sodium Level 133 MEQ/L (136-145) Estimat Glomerular Filtration Rate 59 ML/MIN (>89) Imaging Last Impressions Lower Extremity Ultrasound 02/08/17 1148 Signed Impressions: Service Date/Time: Wednesday, February 08, 2017 12:21 - CONCLUSION: Normal examination. Twin Terry MD Lower Extremity CT 02/08/17 0000 Signed Impressions: Service Date/Time: Wednesday, February 08, 2017 12:18 - CONCLUSION: Relatively large intramuscular and intermuscular hematoma of the upper left thigh as above. No fracture. Twin Leslie MD PE at Discharge GENERAL: Well-developed, well-nourished, in no acute distress. alert and orientated HEENT: Head is normocephalic without any lesions or masses noted. Facial features are symmetric. Eyes: Extraocular muscles are intact. Conjunctivae were clear. NECK: Trachea midline no deviation. CARDIAC: Regular rhythm, regular rate. S1/S2 are heard. No murmurs gallops or rubs. LUNGS: Clear to auscultation bilaterally. No wheeze, rhonchi or rales. No use of accessory muscles on inspiration or expiration. ABDOMEN: Soft, nontender. Nondistended. Bowel sounds heard in all 4 quadrants. No organomegaly or masses. Negative rebound, negative guarding EXTREMITIES: No edema, pulses are equal bilaterally. No cyanosis or clubbing NEUROLOGY: Mood and affect appear appropriate. Cranial nerves II through XII grossly intact. Moving all extremities, speech is clear Hospital Course Left leg pain, weakness with hematoma, improving -CT scan does indicate rather large hematoma, no signs of compartmental syndrome -Physical therapy evaluated the patient today. Patient is improving quite well. Recommending home with physical therapy -Continue pain control, heating pad Hyponatremia, stable -TSH is normal -Urine osmolality increased with increased urine sodium -Continue fluid restriction Diabetes, stable -Accu-Cheks with sliding scale insulin Hypertension, hyperlipidemia, coronary artery disease, atrial fibrillation -Home medications continued -Blood pressure stable -EKG with atrial fibrillation, rate controlled -Patient anticoagulated with Coumadin, INR 3.0 Pt Condition on Discharge: Stable Discharge Disposition: Disch w/ Home Health Serv Discharge Time: > 30 minutes Discharge Instructions DIET: Follow Instructions for: Heart Healthy Diet, Diabetic Diet Activities you can perform: Regular-No Restrictions Activities to Avoid: Driving for 24 hrs Follow up Referrals: Cardiology - 1 Week with Rafiq French MD PCP Follow-up - 2 Weeks New Medications: Insulin Detemir Inj (Levemir Inj) 1,000 unit/ 10 ML Vial 5 UNITS SQ BID for Blood Sugar Management, #1 VIAL 0 Refills Do not mix with any other Insulin. Hydrocodone/Acetaminophen (Hydrocodone-Acetamin 7.5-325) 7.5 Mg-325 Mg Tablet 1 TAB PO Q6H PRN for pain 5-10, #60 TAB Continued Medications: Digoxin (Digoxin) 0.25 Mg Tab 0.25 MG PO DAILY for Regulate Heart Beat, #30 TAB 0 Refills Fenofibrate (Fenofibrate) 48 Mg Tab 48 MG PO DAILY, #30 TAB 0 Refills Lisinopril (Lisinopril) 2.5 Mg Tab 2.5 MG PO DAILY, #30 TAB 0 Refills Rosuvastatin (Rosuvastatin) 40 Mg Tab 40 MG PO DAILY for Cholesterol Management, #30 TAB 0 Refills Spironolactone (Aldactone) 25 Mg Tab 25 MG PO DAILY, #30 TAB 0 Refills Warfarin (Warfarin) 7.5 Mg Tab 7.5 MG PO DAILY for Blood Clot Prevention, #30 TAB 0 Refills Discontinued Medications: Glipizide (Glipizide) 5 Mg Tab 5 MG PO DAILY for Blood Sugar Management, #30 TAB 0 Refills Take 30 minutes before a meal Jacques Zepeda Feb 13, 2017 09:51
--- NOTE | 2017-02-13 11:00 | HHI.FF ---
Face to Face Verification Diagnosis: (1) Traumatic hematoma of lower leg (2) Left leg weakness (3) Thigh hematoma Physical Therapy Order: Evaluate and Treat, Improve ambulation, Strength and gait training I have seen patient Ferdinand Churchill on 02/13/17. My clinical findings support the need for the requested home health care services because: Deconditioned w/ increased weakness I certify that my clinical findings support that this patient is homebound because: Unsteady gait/balance Jacques Zepeda Feb 13, 2017 11:00
[2017-02-13 12:00] VITALS: BP 105/58; PULSE 73; RESP 18; TEMP 97.7; O2SAT 98
== END 2017-02-13 13:25 | DRG 641 ==
LOC: PHED 10:40 → PHEDA 14:43 → PH3B 15:59
PROVIDERS: ADMIT Hospitalist; ATTEND Hospitalist
DX: E87.1 Hypo-osmolality and hyponatremia (principal); N17.9 Acute kidney failure, unspecified; I48.91 Unspecified atrial fibrillation; E11.65 Type 2 diabetes mellitus with hyperglycemia; S70.12XA Contusion of left thigh, initial encounter; I10 Essential (primary) hypertension; I25.10 Atherosclerotic heart disease of native coronary artery without angina pectoris; E78.5 Hyperlipidemia, unspecified; I25.2 Old myocardial infarction; S80.12XA Contusion of left lower leg, initial encounter; R53.1 Weakness; R11.0 Nausea; J61 Pneumoconiosis due to asbestos and other mineral fibers; J44.9 Chronic obstructive pulmonary disease, unspecified; W19.XXXA Unspecified fall, initial encounter; Z95.1 Presence of aortocoronary bypass graft; Z79.01 Long term (current) use of anticoagulants; Z79.84 Long term (current) use of oral hypoglycemic drugs; Z87.891 Personal history of nicotine dependence; Z23 Encounter for immunization
CPT/HCPCS: 73700; 76937; 80048; 80053; 82550; 82948; 83735; 83935; 84300; 84443; 85025; 85610; 85730; 90471; 90686; 90732; 93005; 93971; 96374; G0008; G0009; J1815; Q2038